=== PATIENT | female | born 1930 | race Caucasian/White ===

== ENCOUNTER 2017-03-10 09:32 | Emergency (ER) | payer MEDICARE, OTHER ==
[2017-03-10 09:38] VITALS: BP 147/73
--- NOTE | 2017-03-10 10:11 | UC ---
Lower Extremity/Ankle HPI - HPI Summary HPI Summary: Patient presents with right foot injury after falling yesterday. She states she tripped and fell by inverting the foot and falling onto the foot and knee. She states he has mild discomfort when she flexes the knee and twists, but otherwise is OK. Pain is located over the 5th metatarsal. She is ambulatory, but states she has some pain when she walks. If she walks everted, the pain decreases. She is otherwise healthy. Denies color changes, temperature changes , numbness or tingling. - History of Current Complaint Chief Complaint: UCLowerExtremity Stated Complaint: FOOT INJURY Time Seen by Provider: 03/10/17 09:43 Hx Obtained From: Patient ?: No Onset/Duration: Sudden Onset Severity Initially: Mild Severity Currently: Mild Pain Intensity: 5 Pain Scale Used: 0-10 Numeric Aggravating Factor(s): Standing Alleviating Factor(s): Rest, Elevation Able to Bear Weight: Yes - Risk Factors Gout Risk Factors: Age Over 40 DVT Risk Factors: Negative Septic Arthritis Risk Factor: Extremes of Age - Allergies/Home Medications Allergies/Adverse Reactions: Allergies Allergy/AdvReac Type Severity Reaction Status Date / Time spider bites Allergy Severe Hives Uncoded 03/26/15 07:15 PMH/Surg Hx/FS Hx/Imm Hx Previously Healthy: Yes - Surgical History Surgical History: Yes Surgery Procedure, Year, and Place: tonsils - Family History Known Family History: Positive: Unknown - Social History Occupation: Unemployed Lives: With Family Alcohol Use: Occasionally Alcohol Amount: wine Substance Use Type: None Smoking Status (MU): Former Smoker Have You Smoked in the Last Year: No When Did the Patient Quit Smoking/Using Tobacco: 1979 Review of Systems Constitutional: Negative Skin: Negative Respiratory: Negative Cardiovascular: Negative Motor: Decreased ROM - pain with inversion of the right foot Neurovascular: Negative Musculoskeletal: Negative Neurological: Negative Psychological: Negative All Other Systems Reviewed And Are Negative: Yes Physical Exam Triage Information Reviewed: Yes Appearance: Well-Appearing, No Pain Distress, Well-Nourished Vital Signs: Initial Vital Signs Temp 97.7 F 03/10/17 09:33 Pulse 66 03/10/17 09:33 Resp 18 03/10/17 09:33 BP 147/73 03/10/17 09:33 Pulse Ox 99 03/10/17 09:33 Vital Signs Reviewed: Yes Eyes: Positive: Conjunctiva Clear Neck exam: Normal Neck: Positive: Supple, Nontender, No Lymphadenopathy Respiratory Exam: Normal Respiratory: Positive: Chest non-tender, Lungs clear Cardiovascular Exam: Normal Cardiovascular: Positive: RRR Musculoskeletal Exam: Normal Musculoskeletal: Positive: Strength Limited @ - inversion of the right foot, ROM Limited @ - inversion of the right foot with pain Neurological Exam: Normal Neurological: Positive: Alert Psychological: Positive: Normal Response To Family, Age Appropriate Behavior Skin Exam: Normal Lower Extremity Course/Dx - Course Course Of Treatment: Patient inverted foot during a fall and is now c/o right 5th metatarsal pain. She has used RICE for 1 day and is now wondering if she broke the foot. She has injured the foot before. Xray shows possible cortical abnormality vs. 5th metatarsal fx. Boot vs. posterior leg splint discussed with patient and . It was recommended to not place in a leg splint d/t the inability to walk, crutches, and the increased risk of falling. Patient agrees and prefers to continue with her regular walking shoes. She would not like the post surgical shoe also because of an increased risk of falling. Recommended to patient to elevate and ice the foot and use the adrien wrap over the knee x 2 days for more stability. Encouraged to continue daily activities and swimming. She has an appt with ortho Dr. Paz on Friday and will discuss then the need for further evaluation. - Differential Dx/Diagnosis Differential Diagnosis/HQI/PQRI: Contusion, Dislocation, Fracture (Closed), Fracture (Open) Provider Diagnoses: Possible 5th Metatarsal Fx of the Right Foot Discharge - Discharge Plan Condition: Stable Disposition: HOME Patient Education Materials: Foot Fracture in Adults (ED) Referrals: Rahul Arizmendi MD [Primary Care Provider] - Additional Instructions: Follow up with orthopedic physician in 2-3 days. If numbness, tingling, decreased sensation, increased pain, temperature changes or pallor noted in toes, come back to immediately. Protect the area. Rest the involved area, but not too long. You may need to be off your injury for some time to allow for healing, however excessive immobilization of joints can lead to stiffness and delay healing time. Early mobilization is encouraged if it is pain-free. Ice. Not directly on the skin. Cover with a towel. Apply ice no more than 30 minutes at a time Follow up with [facility] in a few days. Adrien wrap the knee x 2 days for comfort.
--- NOTE | 2017-03-10 10:17 | RAD ---
HISTORY: Fall onto foot, fifth metatarsal injury COMPARISONS: None relevant VIEWS: 3, Frontal, lateral, and oblique views of the right foot FINDINGS: BONE DENSITY: There is diffuse osteopenia. BONES: There is minimal cortical irregularity of the distal fifth metatarsal along the lateral aspect. JOINTS: There is mild osteophytosis of the first MTP joint ALIGNMENT: There is no dislocation. SOFT TISSUES: Unremarkable. OTHER FINDINGS: None. IMPRESSION: 1. OSTEOPENIA. 2. MINIMAL CORTICAL IRREGULARITY OF THE DISTAL FIFTH METATARSAL, WHICH MAY INDICATE THE PRESENCE OF A NONDISPLACED FRACTURE IN THE CORRECT CLINICAL SETTING. RECOMMEND CORRELATION WITH SITE OF PAIN. 3. THE DEGREE OF OSTEOPENIA MAY MAKE A NONDISPLACED FRACTURE RADIOGRAPHICALLY OCCULT. IF SYMPTOMS PERSIST, RECOMMEND REPEAT IMAGING.
== END 2017-03-10 10:00 | disposition home or self-care (01) ==
LOC: UCEAST 09:32
DX: S99.921A Unspecified injury of right foot, initial encounter (principal); W01.0XXA Fall on same level from slipping, tripping and stumbling without subsequent striking against object, initial encounter; Y93.9 Activity, unspecified; Y92.9 Unspecified place or not applicable; Y99.9 Unspecified external cause status; Z87.891 Personal history of nicotine dependence
CPT/HCPCS: 99212; G0463

== ENCOUNTER 2017-10-13 10:33 | Emergency (ER) | payer MEDICARE, OTHER ==
--- NOTE | 2017-10-13 12:25 | UC ---
Throat Pain/Nasal [place] HPI - HPI Summary HPI Summary: Pt presents with sinus pain/pressure/congestion and rhinorrhea for 1 week. She has been taking claritin with no relief. Denies fever, chills, cough, SOB, chest pain. - History of Current Complaint Chief Complaint: UCRespiratory Stated Complaint: RUNNY NOES, CONGESTED Time Seen by Provider: 10/13/17 12:25 Hx Obtained From: Patient Onset/Duration: Gradual Onset Severity: Moderate Pain Intensity: 4 Pain Scale Used: 0-10 Numeric - Allergies/Home Medications Allergies/Adverse Reactions: Allergies Allergy/AdvReac Type Severity Reaction Status Date / Time spider bites Allergy Severe Hives Uncoded 03/26/15 07:15 PMH/Surg Hx/FS Hx/Imm Hx Previously Healthy: Yes - Surgical History Surgical History: Yes Surgery Procedure, Year, and Place: tonsils - Family History Known Family History: Positive: Unknown - Social History Occupation: Retired Lives: With Family Alcohol Use: Occasionally Alcohol Amount: wine Substance Use Type: None Smoking Status (MU): Former Smoker Have You Smoked in the Last Year: No When Did the Patient Quit Smoking/Using Tobacco: 1979 Review of Systems Constitutional: Negative Skin: Negative Eyes: Negative ENT: Nasal Discharge, Sinus Congestion, Sinus Pain/Tenderness Respiratory: Negative Cardiovascular: Negative Gastrointestinal: Negative Neurological: Negative Psychological: Negative All Other Systems Reviewed And Are Negative: Yes Physical Exam Triage Information Reviewed: Yes Appearance: Well-Appearing, No Pain Distress, Well-Nourished Vital Signs: Initial Vital Signs Temp 98.7 F 10/13/17 11:07 Pulse 83 10/13/17 11:07 Resp 16 10/13/17 11:07 BP 115/94 10/13/17 11:07 Pulse Ox 98 10/13/17 11:07 Vital Signs Reviewed: Yes Eyes: Positive: Conjunctiva Clear. Negative: Conjunctiva Inflamed, Discharge ENT: Positive: Hearing grossly normal, Pharynx normal, Nasal congestion, Nasal drainage, TMs normal, Sinus tenderness. Negative: Pharyngeal erythema, TM bulging, TM dull, TM red, Tonsillar swelling, Tonsillar exudate, Hoarse voice, Uvula midline Neck: Positive: Supple, Nontender, No Lymphadenopathy Respiratory: Positive: Chest non-tender, Lungs clear, Normal breath sounds, No respiratory distress, No accessory muscle use Cardiovascular: Positive: RRR, No Murmur, Pulses Normal Neurological: Positive: Alert Psychological: Positive: Age Appropriate Behavior Skin: Negative: rashes Throat Pain/Nasal Course/Dx - Course Course Of Treatment: Sinusitis - Amoxicillin and flonase - Differential Dx/Diagnosis Provider Diagnoses: Sinusitis Discharge - Discharge Plan Condition: Stable Disposition: HOME Prescriptions: Amoxicillin PO (*) [Amoxicillin 500 MG CAP*] 500 mg PO Q12H #14 cap Fluticasone NASAL SPRAY 50MCG* [Flonase NASAL SPRAY 50MCG*] 2 spray BOTH NARES DAILY #1 btl Patient Education Materials: Sinusitis (ED) Referrals: Rahul Arizmendi MD [Primary Care Provider] - Additional Instructions: If you develop a fever, shortness of breath, chest pain, new or worsening symptoms - please call your PCP or go to the ED.
[2017-10-13 14:00] VITALS: BP 112/76
== END 2017-10-13 12:55 | disposition home or self-care (01) ==
LOC: UCEAST 10:33
DX: J32.9 Chronic sinusitis, unspecified (principal); Z87.891 Personal history of nicotine dependence
CPT/HCPCS: 99212; G0463

== ENCOUNTER 2018-06-23 13:00 | Day surgery (SDC) | payer MEDICARE, OTHER ==
[2018-06-23] MEDS ORDERED: fentaNYL* 50 MCG/ML 2 ML VIAL (100 MCG VIAL) ONE (14:03)
[2018-06-23 15:17] VITALS: BP 170/96
--- NOTE | 2018-06-23 15:22 | OP ---
DATE OF OPERATION/DATE OF DICTATION: 06/23/2018 - [facility] DATE OF : 1930. SURGEON: Dr. Chente Bazzi. SOLAR PHOTOVOLTAIC CREW LEAD: None. ANESTHESIA: Topical with intravenous sedation. PRE-OP DIAGNOSIS: Cataract, right eye. POST-OP DIAGNOSIS: Cataract, right eye. OPERATIVE PROCEDURE: Phacoemulsification and cataract extraction with posterior chamber intraocular lens implant, right eye. COMPLICATIONS: None. BLOOD LOSS: None. DESCRIPTION OF PROCEDURE: The patient was brought to the operating room and received a small amount of intra-venous sedation. A drop of Tetracaine was placed in her right eye. She was prepped and draped in the usual sterile fashion for ophthalmic surgery and attention was directed to the right eye where a speculum was placed. A paracentesis was created at the 11 o'clock position and 0.1 cc of 1 percent preservative-free Lidocaine was injected into the anterior chamber followed by DisCoVisc. The eye was digitally stabilized while a 2.75 mm keratome was used to create a triplanar clear corneal incision at the 9 o'clock position. A continuous curvilinear capsulorrhexis was created with a cystotome and Utrata forceps. BSS on a cannula was used to hydrodissect the lens from the capsule. Phacoemulsification was performed in a divide-and- conquer technique to create four fragments which were removed. Residual cortical material was removed with irrigation and aspiration. DisCoVisc was used to inflate the capsular bag and an AUOOTO 21.0 diopter lens was folded and inserted into the capsular bag. DisCoVisc was removed using irrigation and aspiration. BSS on a cannula was used to hydrate the corneal stroma and seal the wound. At the end of the case the pupil was round and the lens was centered. The eye was of normal pressure and the wound was water tight. The speculum was removed and topical Maxitrol ointment was placed on the surface of the eye. The eye was closed, patched and shielded and the patient was sent to the recovery room in stable condition with post operative instructions and follow-up appointment given. [id number]/CPS #: [id number] MTDD
[2018-06-23] MEDS ORDERED: Ketorolac 0.5% OPHTH (NF) 0.5 % 5 ML BTL ONE (16:16)
[2018-06-23] MEDS ORDERED: Tetracaine 0.5% OPTH.SOL 4 ML* 1 DROP BTL ONE (16:16)
[2018-06-23] MEDS ORDERED: Neomycin/Polymy/Dex OPHTH.OIN* 3.5 GM ONE (16:16)
[2018-06-23] MEDS ORDERED: Cyclopentolate 1% OPTH.SOL* 2 ML BTL ONE (16:16)
[2018-06-23] MEDS ORDERED: Phenylephrine 2.5% OPTH.SOL* 2 ML BTL ONE (16:16)
[2018-06-23] MEDS ORDERED: Lidocaine 1%* 5 ML VIAL ONE (16:16)
[2018-06-23] MEDS ORDERED: Tropicamide 1% OPTH.SOL* BTL ONE (16:16)
== END 2018-06-23 15:13 | disposition home or self-care (01) ==
LOC: OREAST 13:00
PROVIDERS: ATTEND Ophthalmology
DX: H25.11 Age-related nuclear cataract, right eye (principal); J30.89 Other allergic rhinitis
CPT/HCPCS: A9270-GY; J3010; V2632

== ENCOUNTER 2018-06-30 09:42 | Day surgery (SDC) | payer MEDICARE, OTHER ==
[~2018-06-30 09:42] MED LIST: Acetaminophen TAB* 325 MG PO PRN; Buffered Lidocaine 0.9% SYRIN* 5 ML/SYR SYRINGE INTRADERM ONE
[2018-06-30] MEDS ORDERED: fentaNYL* 50 MCG/ML 2 ML VIAL (100 MCG VIAL) ONE (10:49)
[2018-06-30] MEDS ORDERED: Midazolam* 1 MG/ML 2 ML VIAL (2 MG) ONE ×2 (10:49→10:52)
[2018-06-30] MEDS ORDERED: hydrALAZINE IV* 20 MG/ML VIAL ONE (12:18)
[2018-06-30 13:08] VITALS: BP 183/90
[2018-06-30] MEDS ORDERED: Tetracaine 0.5% OPTH.SOL 4 ML* 1 DROP BTL ONE (13:35)
[2018-06-30] MEDS ORDERED: Ketorolac 0.5% OPHTH (NF) 0.5 % 5 ML BTL ONE (13:35)
[2018-06-30] MEDS ORDERED: Neomycin/Polymy/Dex OPHTH.OIN* 3.5 GM ONE (13:35)
[2018-06-30] MEDS ORDERED: Phenylephrine 2.5% OPTH.SOL* 2 ML BTL ONE (13:35)
[2018-06-30] MEDS ORDERED: Tropicamide 1% OPTH.SOL* BTL ONE (13:35)
[2018-06-30] MEDS ORDERED: Lidocaine 1%* 5 ML VIAL ONE (13:35)
[2018-06-30] MEDS ORDERED: Cyclopentolate 1% OPTH.SOL* 2 ML BTL ONE (13:35)
--- NOTE | 2018-07-01 03:10 | OP ---
DATE OF OPERATION: 06/30/18 [facility] DATE OF : [birth year]. SURGEON: Dr. Chnete Bazzi. SUPERVISOR CARTON AND CAN SUPPLY: None. ANESTHESIA: Topical with intravenous sedation. PRE-OP DIAGNOSIS: Cataract, left eye. POST-OP DIAGNOSIS: Cataract, left eye. OPERATIVE PROCEDURE: Phacoemulsification and cataract extraction with posterior chamber intraocular lens implant, left eye. COMPLICATIONS: None. BLOOD LOSS: None. DESCRIPTION OF PROCEDURE: The patient was brought to the operating room and received a small amount of intravenous sedation. A drop of tetracaine was placed in her left eye. She was prepped and draped in the usual sterile fashion for ophthalmic surgery and attention was directed to the left eye where a speculum was placed. A paracentesis was created at the 5 o'clock position and 0.1 cc of 1 percent preservative-free Lidocaine was injected into the anterior chamber followed by DisCoVisc. The eye was digitally stabilized while a 2.75 mm keratome was used to create a triplanar clear corneal incision at the 3 o'clock position. A continuous curvilinear capsulorrhexis was created with a cystotome and Utrata forceps. BSS on a cannula was used to hydrodissect the lens from the capsule. Phacoemulsification was performed in a divide-and- conquer technique to create four fragments which were removed. Residual cortical material was removed with irrigation and aspiration. DisCoVisc was used to inflate the capsular bag and an AUOOTO 21.0 diopter lens was folded and inserted into the capsular bag. DisCoVisc was removed using irrigation and aspiration. BSS on a cannula was used to hydrate the corneal stroma and seal the wound. At the end of the case the pupil was round and the lens was centered. The eye was of normal pressure and the wound was water tight. The speculum was removed and topical Maxitrol ointment was placed on the surface of the eye. The eye was closed, patched and shielded and the patient was sent to the recovery room in stable condition with post operative instructions and follow-up appointment given. [id number]/CPS #: [id number] MTDD
== END 2018-06-30 12:30 | disposition home or self-care (01) ==
LOC: OREAST 09:42
PROVIDERS: ATTEND Ophthalmology
DX: H25.12 Age-related nuclear cataract, left eye (principal); F41.9 Anxiety disorder, unspecified
CPT/HCPCS: A9270-GY; J0360; J2250; J3010; V2632

== ENCOUNTER 2019-09-09 09:02 | Emergency (ER) | payer MEDICARE, OTHER ==
--- NOTE | 2019-09-09 09:59 | UC ---
Truncal Trauma HPI - HPI Summary HPI Summary: 89 yo woman who fell against a chest 2 days ago when she slipped, injuring the left rib cage which remains sore. She is not having shortness of breath, but is aware of persistent pain in the left side, which is bruised. 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 Negative: SOB, Cough - Allergies/Home Medications Allergies/Adverse Reactions: Allergies Allergy/AdvReac Type Severity Reaction Status Date / Time spider bites Allergy Severe Hives Uncoded 09/09/19 10:11 Home Medications: Home Medications Cetirizine HCl 1 tab PO DAILY PRN 09/09/19 [History Confirmed 09/09/19] Hydrocortisone [Preparation H] 1 applic TOPICAL DAILY 09/09/19 [History Confirmed 09/09/19] Skin Cream 1 applic TOPICAL DAILY 09/09/19 [History Confirmed 09/09/19] PMH/Surg Hx/FS Hx/Imm Hx Previously Healthy: Yes - Surgical History Surgical History: Yes Surgery Procedure, Year, and Place: tonsils - Family History Known Family History: Positive: Unknown - Social History Occupation: Retired Lives: With Family - lives with hr Alcohol Use: Occasionally Alcohol Amount: wine Substance Use Type: None Smoking Status (MU): Former Smoker Amount Used/How Often: 20 YEARS Have You Smoked in the Last Year: No When Did the Patient Quit Smoking/Using Tobacco: 1979 Review of Systems All Other Systems Reviewed And Are Negative: Yes Constitutional: Positive: Negative Skin: Positive: Bruising - left chest wall Eyes: Positive: Negative ENT: Positive: Negative Respiratory: Negative: Shortness Of Breath, Cough Cardiovascular: Positive: Chest Pain Gastrointestinal: Positive: Negative Genitourinary: Positive: Negative Motor: Positive: Decreased ROM - in left arm; hx of left humeral fracture Musculoskeletal: Positive: Other: - rib pain Neurological: Positive: Negative Psychological: Positive: Negative Is Patient Immunocompromised?: No Physical Exam Triage Information Reviewed: Yes Appearance: Well-Appearing - Elderly woman, alert but vague historian, unsteady gait., Pain Distress - mild ENT: Positive: Normal ENT inspection Neck: Positive: Supple, Nontender, No Lymphadenopathy Respiratory: Positive: Lungs clear, Normal breath sounds Cardiovascular: Positive: RRR, No Murmur Musculoskeletal Exam: Other - kyphotic chest wall; no bony spinal tenderness. TTP left lower rib cage 7-9 in anterior axillary line. Ecchymosis over left rib cage. Neurological: Positive: Alert, Muscle Tone Normal Skin Exam: Other - approximately 7 cm area of ecchymosis over the left lateral lower rib cage. Diagnostics - Radiology No standard instances Radiology Interpretation Completed By: Radiologist - Patient Name: JOSE FELIX Medical Record#: [id number] Ordering Physician: Hannah Rahman MD Acct.#: [id number] : 1930 Age: 89 Sex: F Location: [facility] Exam Date: 09/09/19956 ADM Status: REG ER Order Information: RIBS LT UNI W/ PA CH MIN 3 VWS Accession Number: [id number] CPT: 16671 Indication: LEFT lower rib pain post fall. COMPARISON: November 07, 2007 Technique: Dual-energy PA chest and 2 dedicated LEFT rib views. Report: No LEFT rib fracture, pulmonary contusion, pleural effusion, or pneumothorax. Elevated lung volumes and both diffuse mild prominence of the interstitial markings and patchy rarefaction of the mid to upper lung zone interstitial markings. Chronic small granuloma at the peripheral RIGHT upper lung zone. Cardiomegaly. Unremarkable central pulmonary vasculature. Mildly tortuous descending thoracic aorta without significant change. Suggestion of healed fractures at the RIGHT eighth and ninth ribs. IMPRESSION: #. No LEFT rib fracture or pneumothorax evident. No radiographic evidence for traumatic thoracic disease. #. Stigmata of chronic obstructive pulmonary disease and previous granulomatous disease. #. Cardiomegaly. <Electronically signed by Matthew Caballero MD in OV> 09/09/19 1052 Dictated By: Matthew Caballero MD Dictated Date/Time: 09/09/19 104 Transcribed Date/Time: 09/09/191047 Copy to: CC:Hannah Rahman MD; Rahul Arizmendi MD Imaging - [facility] Imaging - [facility] Imaging - [facility] [address] [facility] [address] [place], [place] [id number] [place] [id number] [place] [id number] ph ([phone]) ph ([phone]) ph ([phone]) This report is only to be considered final once signed by the Provider(s) as displayed in the "<Electronically Signed by >" field (s). Absence of a signature indicates the report is in a draft status and still needs to be finalized. In the event this document was created by someone other than the signing Provider, the individual initiating the document will be listed in the "Entered by:" or "Dictated by:" hernandez. 1 of 1 Truncal Trauma Course/Dx - Course Course Of Treatment: Continue use of acetminophen for control of pain, with follow up if she has prgressive dyspnea. - Differential Dx/Diagnosis Differential Diagnosis/HQI/PQRI: Chest Wall Contusion, Rib Fracture Provider Diagnosis: Contusion of left chest wall Discharge ED - Sign-Out/Discharge Documenting (check all that apply): Patient Departure All imaging exams completed and their final reports reviewed: Yes - Discharge Plan Condition: Stable Disposition: HOME Patient Education Materials: Contusion in Adults (ED) Referrals: Rahul Arizmendi MD [Primary Care Provider] - Additional Instructions: Continue use of acetaminophen for control of pain. If you have increaseing shortness of breath or develop a fever, please ensure that you return for follow up. As we discussed, continuing activity within the limits of your pain is advised. - Billing Disposition and Condition Condition: STABLE Disposition: Home
[2019-09-09 10:11] VITALS: BP 135/115
== END 2019-09-09 11:10 | disposition home or self-care (01) ==
LOC: UCEAST 09:02
DX: S20.212A Contusion of left front wall of thorax, initial encounter (principal); S42.302D Unspecified fracture of shaft of humerus, left arm, subsequent encounter for fracture with routine healing; Z91.038 Other insect allergy status; Z87.891 Personal history of nicotine dependence; W01.0XXA Fall on same level from slipping, tripping and stumbling without subsequent striking against object, initial encounter; X58.XXXD Exposure to other specified factors, subsequent encounter; Y92.9 Unspecified place or not applicable
CPT/HCPCS: 99211; G0463

== ENCOUNTER 2019-09-12 09:56 | Emergency (ER) | payer MEDICARE, OTHER ==
--- NOTE | 2019-09-12 10:37 | UC ---
Respiratory Complaint HPI - HPI Summary HPI Summary: L RIB INJURY:Improving but still hurts. was seen here for it. She reports pain w/ deep breathes. NASAL CONGESTION: a few days of watery eyes but no fever. occasional clogged ears. nothing makes it better/worse. - History of Current Complaint Chief Complaint: UCRespiratory Stated Complaint: CHEST CONGESTION, AND SINUS CONGESTION Time Seen by Provider: 09/12/19 10:06 Hx Obtained From: Patient Pain Intensity: 0 Pain Scale Used: 0-10 Numeric Aggravating Factors: Nothing Alleviating Factors: Nothing - Allergies/Home Medications Allergies/Adverse Reactions: Allergies Allergy/AdvReac Type Severity Reaction Status Date / Time spider bites Allergy Severe Hives Uncoded 09/09/19 10:11 PMH/Surg Hx/FS Hx/Imm Hx Previously Healthy: Yes - Surgical History Surgical History: Yes Surgery Procedure, Year, and Place: tonsils. cataract surgery - Family History Known Family History: Positive: Unknown - Social History Alcohol Use: Rare Alcohol Amount: wine Substance Use Type: None Smoking Status (MU): Former Smoker Amount Used/How Often: 20 YEARS Have You Smoked in the Last Year: No When Did the Patient Quit Smoking/Using Tobacco: 1979 Review of Systems All Other Systems Reviewed And Are Negative: Yes Constitutional: Negative: Fever, Chills, Fatigue Respiratory: Negative: Shortness Of Breath Cardiovascular: Negative: Chest Pain Gastrointestinal: Negative: Nausea Neurological: Negative: Headache, Paresthesia, Numbness, Other - dizziness Physical Exam Vital Signs: Initial Vital Signs Temp 98.6 F 09/12/19 10:07 Pulse 95 09/12/19 10:07 Resp 18 09/12/19 10:07 BP 184/116 09/12/19 10:07 Pulse Ox 95 09/12/19 10:07 Respiratory Course/Dx - Course Course Of Treatment: LEFT RIB PAIN: INCENTIVE SPIROMETRY given and explained that pain may continue but that taking deep breaths are important. SINUSITIS: Although this could be viral there is an element of allergies to this with watery eyes. Plan is to have her do trial of flonase. HTN: DISCUSSed her concerning BP, does not have cardiac symptoms and does report knowing she has high blood pressure and her pcp is aware and managing. she was told to go to ED should she get AREVALO, sob, chest pain. - Differential Dx/Diagnosis Differential Diagnosis/HQI/PQRI: Bronchitis, Lower Resp Infection, Sinusitis, Other Provider Diagnosis: Rib injury, Sinusitis Discharge ED - Sign-Out/Discharge Documenting (check all that apply): Patient Departure All imaging exams completed and their final reports reviewed: No Studies - Discharge Plan Condition: Good Disposition: HOME Prescriptions: Fluticasone NASAL SPRAY 50MCG* [Flonase NASAL SPRAY 50MCG*] 2 spray BOTH NARES DAILY 30 Days #1 btl Patient Education Materials: Sinusitis (ED) Referrals: Rahul Arizmendi MD [Primary Care Provider] - Additional Instructions: I do not think your sinusitis needs antibiotics and there is an element of environmental response to your symptoms. Please use nasal spray. - Billing Disposition and Condition Condition: GOOD Disposition: Home
[2019-09-12 11:08] VITALS: BP 180/110
== END 2019-09-12 11:11 | disposition home or self-care (01) ==
LOC: UCEAST 09:56
DX: J32.9 Chronic sinusitis, unspecified (principal); S29.9XXA Unspecified injury of thorax, initial encounter; Z87.891 Personal history of nicotine dependence; Z91.038 Other insect allergy status; X58.XXXA Exposure to other specified factors, initial encounter; Y92.9 Unspecified place or not applicable
CPT/HCPCS: 99212; G0463

== ENCOUNTER 2019-09-19 09:33 | Emergency (ER) | payer MEDICARE, OTHER ==
[2019-09-19 09:43] VITALS: BP 143/111
--- NOTE | 2019-09-19 10:09 | UC ---
Throat Pain/Nasal [place] HPI - HPI Summary HPI Summary: Patient has chronic mucous , eye drainage and sinus irritation---she is using flonase and zyrtec with out a lot of relief---she wants more information about nasal rinse and what to use to help loosen and manage mucus---she does not want to use the mucinex sinus max that the pharmacy technician trainee gave her as she is fearful of taking the additional Tylenol that she takes as needed for aches and pains - History of Current Complaint Chief Complaint: UCGeneralIllness Stated Complaint: SINUS COMPLAINT Time Seen by Provider: 09/19/19 09:43 Hx Obtained From: Patient, Family/Vehicle And Equipment Cleaner ?: No Onset/Duration: Gradual Onset, Lasting Weeks Pain Intensity: 4 Pain Scale Used: 0-10 Numeric Cough: None Associated Signs & Symptoms: Positive: Nasal Discharge Related History: Seasonal Allergies - Allergies/Home Medications Allergies/Adverse Reactions: Allergies Allergy/AdvReac Type Severity Reaction Status Date / Time spider bites Allergy Severe Hives Uncoded 09/19/19 09:44 PMH/Surg Hx/FS Hx/Imm Hx Previously Healthy: Yes - Surgical History Surgical History: Yes Surgery Procedure, Year, and Place: tonsils. cataract surgery - Family History Known Family History: Positive: Unknown - Social History Occupation: Retired Lives: With Family Alcohol Use: None Alcohol Amount: wine Substance Use Type: None Smoking Status (MU): Former Smoker Amount Used/How Often: 20 YEARS Have You Smoked in the Last Year: No When Did the Patient Quit Smoking/Using Tobacco: 1979 Review of Systems All Other Systems Reviewed And Are Negative: Yes Constitutional: Positive: Negative Skin: Positive: Negative Eyes: Positive: Drainage - chronic per patient, Eye Redness - chronic per patient ENT: Positive: Nasal Discharge Respiratory: Positive: Negative Cardiovascular: Positive: Negative Gastrointestinal: Positive: Negative Genitourinary: Positive: Negative Motor: Positive: Negative Neurovascular: Positive: Negative Musculoskeletal: Positive: Negative Neurological: Positive: Negative Psychological: Positive: Negative Is Patient Immunocompromised?: No Physical Exam Triage Information Reviewed: Yes Appearance: Well-Appearing, No Pain Distress, Thin Vital Signs: Initial Vital Signs Temp 98.3 F 09/19/19 09:36 Pulse 78 09/19/19 09:36 Resp 18 09/19/19 09:36 BP 143/111 01/05/20 09:36 Pulse Ox 100 09/19/19 09:36 Vital Signs Reviewed: Yes Eyes: Positive: Discharge - clear --chronic per patient ENT Exam: Normal ENT: Positive: Normal ENT inspection, Hearing grossly normal, Nasal congestion, TMs normal, Uvula midline. Negative: Trismus, Muffled voice, Hoarse voice, Sinus tenderness Dental Exam: Normal Neck exam: Normal Neck: Positive: Supple, Nontender, No Lymphadenopathy Respiratory Exam: Normal Respiratory: Positive: Chest non-tender, Lungs clear, Normal breath sounds, No respiratory distress, No accessory muscle use Cardiovascular Exam: Normal Cardiovascular: Positive: RRR, No Murmur, Pulses Normal, Brisk Capillary Refill Musculoskeletal Exam: Normal Musculoskeletal: Positive: Strength Intact, ROM Intact, No Edema Neurological Exam: Normal Neurological: Positive: Alert, Muscle Tone Normal Psychological Exam: Normal Psychological: Positive: Normal Response To Family Skin Exam: Normal Throat Pain/Nasal Course/Dx - Course Course Of Treatment: education provided regarding rinse rinses/marian pot also changing multi symptoms sinus med to plain mucinex - Differential Dx/Diagnosis Provider Diagnosis: Chronic nasal congestion Discharge ED - Sign-Out/Discharge Documenting (check all that apply): Patient Departure All imaging exams completed and their final reports reviewed: No Studies - Discharge Plan Condition: Stable Disposition: HOME Patient Education Materials: Rhinosinusitis (ED), Nasal Rinse (ED) Referrals: Rahul Arizmendi MD [Primary Care Provider] - 1 Week Additional Instructions: From the pharmacy ask for these things PLAIN MUCINEX---the generic is perfectly fine NASAL RINSE OR MARIAN POT Have a blessed and wonderful day - Billing Disposition and Condition Condition: STABLE Disposition: Home
== END 2019-09-19 10:14 | disposition home or self-care (01) ==
LOC: UCEAST 09:33
DX: R09.81 Nasal congestion (principal); H57.89 Other specified disorders of eye and adnexa; Z91.09 Other allergy status, other than to drugs and biological substances; Z87.891 Personal history of nicotine dependence
CPT/HCPCS: 99211; G0463